=== PATIENT | male | born 1990 | race Caucasian/White ===

== ENCOUNTER 2018-02-15 16:09 | Emergency (ER) | payer SELFPAY ==
--- NOTE | 2018-02-15 18:03 | ED ---
Substance Abuse/Use - HPI Summary HPI Summary: This is scribe Jatinder Muñoz documenting for attending Orestes Bergman MD. A 27 y/o male presents to ED c/o withdrawal symptoms. As per triage, "heroin withdrawals, audrey in ICU cant get in clinic until saturday told to come here and maybe get help with symptoms". According to the patient, he has been experiencing cold chills, diarrhea, sleep apnea, runny nose, frequent yawning and his arms/legs are shaking. He noted that he normally uses a "bundle of heroin" a day, however, he has not used in the last 24 hours. He stated that he really wants help and he wants to get into [facility]. He was planning on going to [facility] on Saturday (without appointment). He stated he would very much like it if [facility] can get him in because he doesn't want to go to [place] due to how judgmental they are. Patient will be leaving to [place] within the next month or so. His fichuchoe doesn't use heroin. I, Dr. Orestes Bergman, personally performed the services described in this documentation as scribed in my presence and it is both accurate and complete. - History Of Current Complaint Chief Complaint: EDSubstanceAbuse Stated Complaint: WITHDRAWAL Time Seen by Provider: 02/15/18 17:51 Hx Obtained From: Patient Onset/Duration of Drug/ETOH Abuse: Hours Ingestion History: Type/Name Of Drug - Heroin Timing Of Abuse: Daily Aggravating Factor(s): Nothing Alleviating Factor(s): Nothing Associated Signs And Symptoms: Sleep Disturbance, Diarrhea - Allergies/Home Medications Allergies/Adverse Reactions: Allergies Allergy/AdvReac Type Severity Reaction Status Date / Time adhesive tape Allergy Hives Verified 02/15/18 16:12 azithromycin [From Zithromax] Allergy Rash Verified 02/15/18 16:12 erythromycin base Allergy Rash Verified 02/15/18 16:12 Penicillins Allergy Shortness Verified 02/15/18 16:12 of Breath PMH/Surg Hx/FS Hx/Imm Hx Endocrine/Hematology History: Denies: Hx Diabetes Cardiovascular History: Denies: Hx Hypertension Infectious Disease History: No Infectious Disease History: Denies: Traveled Outside the [place] in Last 30 Days - Family History Known Family History: Positive: Diabetes - Social History Alcohol Use: Occasionally Substance Use Type: Reports: Heroin Smoking Status (MU): Heavy Every Day Tobacco Smoker Review of Systems Positive: Chills, Other - Yawning. Negative: Fever Positive: Nasal Discharge Neurological: Other - POSITIVE: Sleep apnea. All Other Systems Reviewed And Are Negative: Yes Physical Exam - Summary Physical Exam Summary: Appearance: The patient is well-nourished in no acute distress and in no acute pain. Skin: The skin is warm and dry and skin color reflects adequate perfusion. HEENT: The head is normocephalic and atraumatic. The pupils are equal and reactive. The conjunctivae are clear and without drainage. Nares are patent and without drainage. Mouth reveals moist mucous membranes and the throat is without erythema and exudate. The external ears are intact. The ear canals are patent and without drainage. The tympanic membranes are intact. Neck: The neck is supple with full range of motion and non-tender. There are no carotid bruits. There is no neck vein distension. Respiratory: Chest is non-tender. Lungs are clear to auscultation and breath sounds are symmetrical and equal. Cardiovascular: Heart is regular rate and rhythm. There is no murmur or rub auscultated. There is no peripheral edema and pulses are symmetrical and equal. Abdomen: The abdomen is soft and non-tender. There are normal bowel sounds heard in all four quadrants and there is no organomegaly palpated. Musculoskeletal: There is no back tenderness noted. Extremities are non-tender with full range of motion. There is good capillary refill. There is no peripheral edema or calf tenderness elicited. Neurological: Patient is alert and oriented to person, place and time. The patient has symmetrical motor strength in all four extremities. Cranial nerves are grossly intact. Deep tendon reflexes are symmetrical and equal in all four extremities. Psychiatric: The patient has an appropriate affect and does not exhibit any anxiety or depression. COWS SCALE COMPLETED AT 1800: 15 Triage Information Reviewed: Yes Vital Signs On Initial Exam: Initial Vitals Temp Pulse Resp BP Pulse Ox 98.1 F 71 16 147/83 98 02/15/18 16:12 02/15/18 16:12 02/15/18 16:12 02/15/18 16:12 02/15/18 16:12 Vital Signs Reviewed: Yes Diagnostics - Vital Signs Vital Signs Temp Pulse Resp BP Pulse Ox 02/15/18 16:12 98.1 F 71 16 147/83 98 - Laboratory Lab Statement: Any lab studies that have been ordered have been reviewed, and results considered in the medical decision making process. Course/Dx - Course Course Of Treatment: Mr. Romeo presented to the emergency department in heroin withdrawal. He uses heroin on a daily basis and has for quite some time. He is currently been in the hospital for over 24 hours with his girlfriend who is in the ICU. The last time he did any IV heroin was yesterday morning. His COWS is 15 on arrival. He has had Suboxone in the past and is familiar with it although it has never been prescribed for him. He is concerned having seen what has happened with his girlfriend and would prefer to get off heroin anyway. He was given Suboxone here in the emergency department and improved. I sent him a prescription for Suboxone 8 mg twice a day until Saturday. He is going to call [facility] on Saturday and see if he can get an appointment with a provider, if he is unable I will told him I would be willing to see him Saturday morning. - Diagnoses Provider Diagnoses: Heroin withdrawal Discharge - Sign-Out/Discharge Documenting (check all that apply): Patient Departure - DISCHARGE - Discharge Plan Condition: Stable Disposition: HOME Prescriptions: Buprenorphine HCl/Naloxone HCl [Suboxone 8 mg-2 mg Sl Film] 1 each SL BID #8 film MDD 2 Patient Education Materials: How to Stop Smoking (ED), Alcohol Withdrawal (ED) , Polysubstance Abuse (ED), Opioid Withdrawal (ED) Referrals: [facility],. [[facility], APPLICATION, OTHER] - Additional Instructions: FOLLOW UP WITH [facility] ON SATURDAY, FEBRUARY 19 2018. RETURN TO ED FOR ANY NEW OR WORSENING SYMPTOMS. - Billing Disposition and Condition Condition: STABLE Disposition: Home
[2018-02-15] MEDS ORDERED: Buprenorphine/Naloxone 8-2 MG SL TAB* 1 TAB PO ONE ×2 (18:06→18:35)
[2018-02-15 18:32] VITALS: BP 148/95
== END 2018-02-15 18:43 | disposition home or self-care (01) ==
LOC: ED 16:09
DX: F11.23 Opioid dependence with withdrawal (principal); F17.200 Nicotine dependence, unspecified, uncomplicated; Z88.3 Allergy status to other anti-infective agents; Z88.0 Allergy status to penicillin
CPT/HCPCS: 99282; A9270-GY

== ENCOUNTER 2018-02-18 10:14 | Emergency (ER) | payer SELFPAY ==
[2018-02-18] MEDS ORDERED: Buprenorphine/Naloxone 8-2 MG SL TAB* 1 TAB PO ONE (10:40)
--- NOTE | 2018-02-18 10:44 | ED ---
Substance Abuse/Use - HPI Summary HPI Summary: This is scribe Jaime Montoya documenting for Orestes Bergman M.D. Patient is a 27 y/o M w/ c/o withdrawal Sx onsetting yesterday. He reports heroin dependence and is trying to get clean. He was seen three days ago at [facility] by Dr. Bergman. He was given Suboxone and discharged to home. He took a tab Saturday but did not have one to take yesterday. Patient has an appointment with [facility] tomorrow. Patient came into ED requesting enough Suboxone to get him through to appointment tomorrow. He reports experiencing same Sx that he had during last visit, which included cold chills, diarrhea, sleep apnea, rhinorrhea , frequent yawning and arms/legs shaking. Last heroin usage was 02/14/18. On triage, associated pain is rated 6/10 and nothing is reported to aggravate/ alleviate Sx. Home medications and allergies reviewed. I, Dr. Bergman, personally performed the services described in this documentation as scribed in my presence and it is both accurate and complete. - History Of Current Complaint Chief Complaint: EDPrescriptionNeeded Stated Complaint: WITHDRAWALS Time Seen by Provider: 02/18/18 10:22 Hx Obtained From: Patient Onset/Duration of Drug/ETOH Abuse: Days - withdrawal Ingestion History: Type/Name Of Drug - heroin, last use 02/14/18 reported Severity Currently: Moderate - 6/10 on triage Aggravating Factor(s): Nothing Alleviating Factor(s): Nothing Associated Signs And Symptoms: Diarrhea, Other: - cold chills, sleep apnea, runny nose, frequent yawning and arms/legs shaking Related Hx: Drug/Alcohol Last Used @ - last heroin usage on 02/14/18 reported - Allergies/Home Medications Allergies/Adverse Reactions: Allergies Allergy/AdvReac Type Severity Reaction Status Date / Time adhesive tape Allergy Hives Verified 02/15/18 16:12 azithromycin [From Zithromax] Allergy Rash Verified 02/15/18 16:12 erythromycin base Allergy Rash Verified 02/15/18 16:12 Penicillins Allergy Shortness Verified 02/15/18 16:12 of Breath PMH/Surg Hx/FS Hx/Imm Hx Endocrine/Hematology History: Denies: Hx Diabetes Cardiovascular History: Denies: Hx Hypertension Infectious Disease History: No Infectious Disease History: Denies: Traveled Outside the [place] in Last 30 Days - Family History Known Family History: Positive: Diabetes - Social History Alcohol Use: Occasionally Substance Use Type: Reports: Heroin Smoking Status (MU): Heavy Every Day Tobacco Smoker Review of Systems Positive: Chills - cold, Other - yawning frequently, sleep apnea Positive: Nasal Discharge - rhinorrhea Positive: Diarrhea Positive: Other - arms/legs shaking All Other Systems Reviewed And Are Negative: Yes Physical Exam - Summary Physical Exam Summary: Appearance: The patient is well-nourished in no acute distress and in no acute pain. Skin: The skin is warm and dry and skin color reflects adequate perfusion. HEENT: The head is normocephalic and atraumatic. The pupils are equal and reactive. The conjunctivae are clear and without drainage. Nares are patent and without drainage. Mouth reveals moist mucous membranes and the throat is without erythema and exudate. The external ears are intact. The ear canals are patent and without drainage. The tympanic membranes are intact. Neck: The neck is supple with full range of motion and non-tender. There are no carotid bruits. There is no neck vein distension. Respiratory: Chest is non-tender. Lungs are clear to auscultation and breath sounds are symmetrical and equal. Cardiovascular: Heart is regular rate and rhythm. There is no murmur or rub auscultated. There is no peripheral edema and pulses are symmetrical and equal. Abdomen: The abdomen is soft and non-tender. There are normal bowel sounds heard in all four quadrants and there is no organomegaly palpated. Musculoskeletal: There is no back tenderness noted. Extremities are non-tender with full range of motion. There is good capillary refill. There is no peripheral edema or calf tenderness elicited. Neurological: Patient is alert and oriented to person, place and time. The patient has symmetrical motor strength in all four extremities. Cranial nerves are grossly intact. Deep tendon reflexes are symmetrical and equal in all four extremities. Psychiatric: The patient has an appropriate affect and does not exhibit any anxiety or depression. Triage Information Reviewed: Yes Vital Signs On Initial Exam: Initial Vitals Temp Pulse Resp BP Pulse Ox 97.8 F 79 18 117/86 96 02/18/18 10:18 02/18/18 10:18 02/18/18 10:18 02/18/18 10:18 02/18/18 10:18 Vital Signs Reviewed: Yes Diagnostics - Vital Signs Vital Signs Temp Pulse Resp BP Pulse Ox 02/18/18 10:18 97.8 F 79 18 117/86 96 - Laboratory Lab Statement: Any lab studies that have been ordered have been reviewed, and results considered in the medical decision making process. Course/Dx - Course Course Of Treatment: Mr. Romeo was given additional dose of Suboxone as he is complaining that he is beginning to withdraw again. He had been given a dose on Saturday and Saturday and was without yesterday. A COWS was not performed. He has an appointment tomorrow for outpatient evaluation and a ride there. - Diagnoses Provider Diagnoses: Opioid dependence Discharge - Sign-Out/Discharge Documenting (check all that apply): Patient Departure - discharge - Discharge Plan Condition: Stable Disposition: HOME Patient Education Materials: Opioid Dependence (ED) Referrals: [facility],. [[facility], APPLICATION, OTHER] - 1 Day Additional Instructions: FOLLOW UP WITH [facility] ON SATURDAY, FEBRUARY 19 2018. RETURN TO ED FOR ANY NEW OR WORSENING SYMPTOMS. - Billing Disposition and Condition Condition: STABLE Disposition: Home
[2018-02-18 11:17] VITALS: BP 155/85
== END 2018-02-18 11:15 | disposition home or self-care (01) ==
LOC: ED 10:14
DX: F11.20 Opioid dependence, uncomplicated (principal); F17.200 Nicotine dependence, unspecified, uncomplicated; Z88.3 Allergy status to other anti-infective agents; Z88.0 Allergy status to penicillin
CPT/HCPCS: 99281; A9270-GY

== ENCOUNTER 2018-02-20 21:46 | Emergency (ER) | payer SELFPAY ==
[2018-02-20 22:07] VITALS: BP 129/67
== END 2018-02-20 23:59 | disposition left against medical advice (07) ==
LOC: ED 21:46
DX: R51 Headache (principal); Z53.21 Procedure and treatment not carried out due to patient leaving prior to being seen by health care provider

== ENCOUNTER 2018-11-15 14:06 | Emergency (ER) | payer SELFPAY ==
[2018-11-15 14:30] VITALS: BP 143/60
== END 2018-11-15 14:55 | disposition left against medical advice (07) ==
LOC: UCCORT 14:06
DX: R09.89 Other specified symptoms and signs involving the circulatory and respiratory systems (principal); R05 Cough; Z53.21 Procedure and treatment not carried out due to patient leaving prior to being seen by health care provider